=== PATIENT | female | born 1965 | race Caucasian/White ===

== ENCOUNTER 2018-04-22 11:45 | Emergency (ER) | payer OTHER ==
[~2018-04-22] VITALS: Ht 172.7 cm; Wt 141.2 kg
[~2018-04-22 11:45] MED LIST: FLEXERIL10 MG PO; MOTRIN800 MG PO
[2018-04-22] MEDS ORDERED: LISINOPRIL10 MG PO (13:09)
[2018-04-22] MEDS ORDERED: HYDROCHLOROTHIA25 MG PO (13:09)
[2018-04-22] MEDS ORDERED: NASONEX17 GM BOTH NARES (13:10)
[2018-04-22] MEDS ORDERED: ZYRTEC10 M3 PO (13:10)
[2018-04-22 13:39] LABS: HEMATOCRIT 35.8 % (36.0-46.0); HEMOGLOBIN 11.7 G/DL (11.9-15.5); MCH 28.1 PG (29.0-34.0); MCHC 32.7 G/DL (30.0-36.0); MCV 85.9 FL (83-99); PLATELET COUNT 245 K/uL (156-360); RBC DIS.WIDTH-CV 13.1 % (11.8-14.6); RED BLOOD COUNT 4.17 M/uL (3.80-5.20); WHITE BLOOD COUNT 9.9 K/uL (4.1-10.2)
[2018-04-22 13:52] LABS: CHLORIDE 104 mEq/L (99-109); POTASSIUM 3.8 mEq/L (3.7-5.4); SODIUM 137 mEq/L (136-147)
[2018-04-22 13:54] LABS: GLUCOSE 130 mg/dL (70-99)
[2018-04-22 13:56] LABS: APPEARANCE SL.HAZY ((CLEAR)); BILIRUBIN NEGATIVE; BLOOD NEGATIVE; COLOR YELLOW ((YELLOW)); GLUCOSE (STRIP) NEGATIVE; KETONES NEGATIVE; LEUKOCYTES LARGE; NITRITE NEGATIVE; PROTEIN (STRIP) NEGATIVE; SPECIFIC GRAVITY 1.016 (1.000-1.030)
[2018-04-22 13:58] LABS: CREATININE 0.7 mg/dL (0.6-1.3); GFR ESTIMATE (CALCULATED) > 59 mL/min/
[2018-04-22 13:59] LABS: UREA NITROGEN (BUN) 13 mg/dL (9-23)
[2018-04-22 14:06] LABS: BACTERIA 2+ /HPF; EPITHELIAL CELLS 2+ /HPF; MUCUS TRACE /LPF; RED BLOOD CELLS 0-5 /HPF (0-5); WHITE BLOOD CELLS TNTC /HPF (0-5)
[2018-04-22] MEDS ORDERED: KEFLEX500 MG PO (15:04)
[2018-04-22] MEDS ORDERED: MOTION RELIEF25 MG PO (15:04)
[2018-04-22 15:14] VITALS: BP 160/78
== END 2018-04-22 15:16 | disposition home or self-care (01) ==
LOC: EME 11:45
PROVIDERS: Nurse Practitioner Family
DX: R42 Dizziness and giddiness (principal); I10 Essential (primary) hypertension; N39.0 Urinary tract infection, site not specified; E11.65 Type 2 diabetes mellitus with hyperglycemia; R51 Headache
CPT/HCPCS: 70450; 80048; 81003; 82948; 85027; 93005; 99281; 99284